=== PATIENT | male | born 1980 | race African-American/Black ===

== ENCOUNTER → 2017-02-07 | Outpatient (CLI) | payer OTHER ==
--- NOTE | 2017-02-07 11:12 | REP ---
RIGHT KNEE SERIES: Five views of the right knee performed. There is no evidence of fracture or dislocation. The joint spaces appear essentially normal. There is no joint effusion. IMPRESSION: Negative right knee series. Signed by Delvin Yu MD 02/07/2017 12:21 P
--- NOTE | 2017-02-07 11:13 | REP ---
RIGHT FOOT SERIES: Four views of the right foot performed. There is no acute fracture or dislocation. There is mild narrowing and subchondral sclerosis at the first metatarsal phalangeal joint as well as at the interphalangeal joints. No other significant finding is seen. IMPRESSION: Mild degenerative changes as above. Signed by Delvin Yu MD 02/07/2017 12:21 P
== END ==
LOC: M RAD 09:23
PROVIDERS: ATTEND Surgery
DX: M25.561 Pain in right knee (principal); M19.071 Primary osteoarthritis, right ankle and foot